=== PATIENT | female | born 1950 | race Caucasian/White ===

== ENCOUNTER 2023-06-04 10:27 | Outpatient (OUT) | payer OTHER, SELFPAY ==
--- NOTE | 2023-06-04 10:28 | VEIN_ITS ---
Patient Name: CHAPO HO MR#: [id number] : 1950 Exam Date: 06/04/2023 Ordering Doctor: TATI VIDES M.D. RADIOLOGY REPORT PROCEDURE: VC EXT VENOUS REFLUX YARIEL LMTD COMPARISON: None. INDICATIONS: I83.813 Bilateral painful varicose veins TECHNIQUE: Duplex imaging of the lower extremity to assess the deep and superficial venous system for the presence of deep or superficial venous incompetence and to document the location and severity of disease. The study includes evaluation of the great saphenous vein (GSV), anterior accessory saphenous vein (AASV) and small saphenous vein (SSV). Patient scanned in reverse Trendelenburg and standing. FINDINGS: RIGHT LOWER EXTREMITY: Saphenofemoral Junction Reflux: Yes 7.1mm 0.8 sec GSV: Diam (mm) Reflux/ Time (sec) Proximal Thigh N/A Mid Thigh N/A Distal Thigh N/A Prox Calf N/A Mid Calf N/A Saphenopopliteal Junction Reflux: 4.5mm Yes 1.5 SSV: Proximal Calf 5.3 Yes 2.1 Mid Calf 3.6 Yes 0.6 AASV: Proximal Thigh 4.8 Yes 3.0 Mid Thigh 5.2 Yes 1.7 Distal Thigh Thrombi: No acute or chronic thrombus visualized Compressibility: Normal Flow: Normal Preforator: Dist/med calf 4.1mm with 1.7s reflux. Tech Note: GSV was previously stripped. Incompetent AASV. Patent varicose vein dist/med calf 5.4mm with 1.3s reflux. Patent varicose vein mid/med calf 3.5mm with 0.7s reflux. Patent varicose vein 4.0mm off AASV with 1.1s reflux. Patent varicose vein medial knee of AASV 5.9mm with 2.2s reflux. LEFT LOWER EXTREMITY: Saphenofemoral Junction Reflux: Yes 5.7 mm 1.9 sec GSV: Diam (mm) Reflux/Time (sec) Proximal Thigh 6.7 Yes 1.5 Mid Thigh 5.5 Yes 1.4 Distal Thigh 6.0 Yes 0.6 Prox Calf 4.7 No Mid Calf 3.6 Yes 1.7 Saphenopopliteal Junction Relux: 3.4 mm Yes 0.9 SSV: Proximal Calf 3.1 Yes 1.7 Mid Calf 3.3 No AASV: Proximal Thigh 4.5 Yes 1.6 Mid Thigh 4.9 Yes 1.2 Distal Thigh Yes Thrombi: No acute or chronic thrombus visualized Compressibility: Normal Flow: Normal Clinical Program Coordinator: Dist/med calf 3.5mm with 1.4s reflux. Tech Note: Incompetent GSV. Patent varicose vein medial knee 3.8mm with 1.5s reflux. Patent varicose vein dist/med thigh 4.1mm with 1.8s reflux. CONCLUSION: 1. Moderate right and mild left small saphenous vein venous insufficiency with dilatation on the right but no dilatation on left 2. Moderate right and mild left anterior accessory saphenous vein venous insufficiency with mild dilatation 3. Mild venous insufficiency with dilatation and saphenofemoral junction reflux in the left great saphenous vein 4. Bilateral incompetent varicose veins Dictated by: Hernandez Iverson MD on 06/04/2023 at 12:11 Approved by: Hernandez Iverson MD on 06/04/2023 at 12:12
== END 2023-06-04 10:28 | disposition home or self-care (01) ==
LOC: VC 10:27
PROVIDERS: PCP Nurse Practitioner; Visit Provider Student in an Organized Health Care Education/Training Program
DX: I83.013 Varicose veins of right lower extremity with ulcer of ankle (principal); L97.319 Non-pressure chronic ulcer of right ankle with unspecified severity; I83.813 Varicose veins of bilateral lower extremities with pain
CPT/HCPCS: 93970

== ENCOUNTER 2024-05-22 12:47 | Outpatient (OUT) | payer MEDICARE, SELFPAY ==
--- NOTE | 2024-05-22 13:00 | CA_ITS ---
Patient Name: CHAPO HO MR#: [id number] : 1950 Exam Date: 05/22/2024 Ordering Doctor: HAIDER HONG ECHOCARDIOGRAM REPORT PROCEDURE: CA ECHO DOPPLER COMPLETE INDICATIONS: Diastolic heart failure, hypertension COMPARISON: None. DESCRIPTION: COMPLETE ECHOCARDIOGRAM Real-time transthoracic echocardiography with 2D, M-mode, spectral and color flow Doppler performed. QUALITY: Technical quality was adequate. LEFT VENTRICLE: Normal chamber size. Normal left ventricular wall thickness. Normal systolic function. LV EF: Normal left ventricular ejection fraction, (55%). DIASTOLIC: ATRIAL SEPTUM: Visually appears intact. LEFT ATRIUM: Moderate dilatation. RIGHT ATRIUM: Mild dilatation. RIGHT VENTRICLE: Normal chamber size. Normal right ventricular systolic function. TRICUSPID VALVE: Normal mobility and thickness. No stenosis with trivial regurgitation. Doppler studies reveal moderately (45-60) elevated right sided pressures. RVSP 51 mmHg MITRAL VALVE: Normal mobility and thickness. No evidence of mitral valve stenosis. There is no mitral annular calcification. No mitral regurgitation. AORTIC VALVE: Normal trileaflet appearance. No visible sclerosis. Normal leaflet mobility. No evidence of aortic valve stenosis. No aortic regurgitation. AORTIC ROOT: Normal diameter and appearance. Ascending aorta is normal in size. PULMONIC VALVE: Normal thickness and mobility. No stenosis. No regurgitation. PERICARDIUM: No evidence of pericardial effusion. IVC: IVC is dilated (2.4 cm), does not fully collapse. PLEURA: CONCLUSION: 1. Normal left ventricular size and systolic function. LVEF is 55%. 2. Normal right ventricular size and systolic function. 3. Mild to moderate biatrial dilatation. 4. No significant valvular dysfunction. 5. Moderately elevated right-sided pressures. RVSP is 51 mmHg. Adult Echocardiography Procedure Report Left Ventricle LVEDD (3.7 - 5.6 cm): 4.54 cm LVESD (2.2 - 4.0 cm): 3.04 cm LVIVS thickness (0.6 - 1.2 cm): 1.09 cm LVPW thickness (0.5 - 1.0 cm): 1.02 cm e': 0.09 m/s E - e': 11.28 LVOT Max Gradient: 3.10 mm[Hg] LVOT Area (cm2): 0.88 m/s Peak Velocity (LVOT): 0.88 m/s Mean Velocity (LVOT): 0.52 m/s LVOT Diameter 2.21 cm Left Atrium LA Volume Index (2D A2C): 30.77 ml/m2 Left Atrium Systolic Dimension: 4.66 cm Mitral Valve MV E to A Ratio: 3.77 Mitral Valve A-Wave Peak Velocity: 0.26 m/s Mitral Valve E-Wave Peak Velocity: 0.99 m/s Right Ventricle Aorta AO Root Diam: 3.00 cm Ascending Ao Diam: 2.70 cm Aortic Valve AoV Area (Peak Philippe): 3.22 cm2, 3.22 cm2 AoV Area (VTI): 3.04 cm2, 3.04 cm2 Peak Velocity(Antegrade Flow): 1.05 m/s Peak Gradient(Antegrade Flow): 4.42 mm[Hg] Mean Velocity(Antegrade Flow): 0.71 m/s Mean Gradient(Antegrade Flow): 2.31 mm[Hg] Velocity Time Integral: 24.58 cm Tricuspid Valve Peak Velocity (Regurgitant Flow): 2.98 m/s Pulmonic Valve Mean Gradient: 1.72 mm[Hg] Mean Velocity: 0.60 m/s Peak Velocity: 0.98 m/s, 0.96 m/s Peak Gradient: 3.70 mm[Hg], 3.81 mm[Hg] Right Atrium Right Atrium Systolic Pressure: 65.43 ml, 65.43 ml Dictated by: Ming Mane M.D. on 05/22/2024 at 16:57 Approved by: Ming Mane M.D. on 05/22/2024 at 17:02
[2024-05-22] MEDS: HEPARIN SODIUM (PORCINE) PF LOCK FLUSH 500 UNIT/5 ML SYRINGE IV (13:30)
[2024-05-22 14:15] LABS: Anion Gap 13.3; BUN Creatinine Ratio 18.7; Calcium 8.9 mg/dL (8.5-10.1); Carbon Dioxide 21.7 mmol/L (21.0-32.0); Chloride 108 mmol/L (98-107); Estimated GFR (African America 20 (>=60 mL/min/1.73m^2); Estimated GFR (Non-African Ame 16 (>=60 mL/min/1.73m^2); Glucose 96 mg/dL (74-106); Sodium 138 mmol/L (136-145)
== END 2024-05-22 12:48 | disposition home or self-care (01) ==
LOC: CARD 12:47
PROVIDERS: PCP Nurse Practitioner
DX: I50.32 Chronic diastolic (congestive) heart failure (principal); I48.11 Longstanding persistent atrial fibrillation; I11.0 Hypertensive heart disease with heart failure
CPT/HCPCS: 36415; 36591; 80048; 93306; J1642

== ENCOUNTER 2024-05-29 11:51 | Outpatient (OUT) | payer MEDICARE, SELFPAY ==
[2024-05-29 13:00] LABS: Alanine Aminotransferase 22 U/L (14-59); Albumin Globulin Ratio 1.1; Albumin Level 3.8 g/dL (3.4-5.0); Alkaline Phosphatase 63 U/L (46-116); Anion Gap 15.7; Aspartate Amino Transferase 19 U/L (15-37); BUN Creatinine Ratio 20.6; Bilirubin Total 0.6 mg/dL (0.2-1.0); Calcium 9.4 mg/dL (8.5-10.1); Carbon Dioxide 23.1 mmol/L (21.0-32.0); Chloride 105 mmol/L (98-107); Estimated GFR (African America 23 (>=60 mL/min/1.73m^2); Estimated GFR (Non-African Ame 19 (>=60 mL/min/1.73m^2); Globulin 3.5 g/dL; Glucose 117 mg/dL (74-106); Potassium 4.8 mmol/L (3.5-5.1); Sodium 139 mmol/L (136-145); Total Protein 7.3 g/dL (6.4-8.2)
== END 2024-05-29 11:52 | disposition home or self-care (01) ==
LOC: LAB 11:52
PROVIDERS: PCP Nurse Practitioner
DX: I48.11 Longstanding persistent atrial fibrillation (principal); I50.32 Chronic diastolic (congestive) heart failure
CPT/HCPCS: 80053; 80162; 83880

== ENCOUNTER 2024-10-12 12:43 | Outpatient (OUT) | payer MEDICARE, SELFPAY ==
--- NOTE | 2024-10-12 13:00 | CA_ITS ---
Patient Name: CHAPO HO MR#: [id number] : 1950 Exam Date: 10/12/2024 Ordering Doctor: HAIDER HONG ECHOCARDIOGRAM REPORT PROCEDURE: CA ECHO DOPPLER COMPLETE INDICATIONS: Diastolic heart failure, atrial fibrillation, hypertension, diabetes COMPARISON: None. DESCRIPTION: COMPLETE ECHOCARDIOGRAM Real-time transthoracic echocardiography with 2D, M-mode, spectral and color flow Doppler performed. QUALITY: Technical quality was good. LEFT VENTRICLE: Normal chamber size. Borderline left ventricular hypertrophy. LV EF: Global left ventricular systolic function is normal; visually estimated ejection fraction is 55 to 60%. Unable to assess regional wall motion abnormality; consider contrast study for better delineation of endocardial borders. DIASTOLIC: Unable to assess diastolic function. ATRIAL SEPTUM: Visually appears intact. LEFT ATRIUM: Normal chamber size. RIGHT ATRIUM: Normal chamber size. RIGHT VENTRICLE: Normal chamber size. Normal systolic function. TRICUSPID VALVE: Normal mobility and thickness. Trivial regurgitation. Doppler studies reveal mildly (35-45) elevated right-sided pressures. RVSP 38 mmHg MITRAL VALVE: Normal mobility and thickness. No evidence of mitral valve stenosis. There is no mitral annular calcification. Mild mitral regurgitation. AORTIC VALVE: Normal trileaflet appearance. No visible sclerosis. Normal leaflet mobility. No evidence of aortic valve stenosis. No aortic regurgitation. AORTIC ROOT: Normal diameter and appearance. PULMONIC VALVE: Normal thickness and mobility. No stenosis. No regurgitation. PERICARDIUM: No evidence of pericardial effusion. IVC: Collapses with inspiration. IVC is dilated (2.4 cm) CONCLUSION: 1. Global left ventricular systolic function is normal; visually estimated ejection fraction is 55 to 60% 2. Normal right ventricular size and systolic function 3. Borderline left ventricular hypertrophy 4. The left atrium is normal in size 5. Mild mitral regurgitation Adult Echocardiography Procedure Report Left Ventricle LVEDD (3.7 - 5.6 cm): 4.51 cm LVESD (2.2 - 4.0 cm): 2.86 cm LVIVS thickness (0.6 - 1.2 cm): 0.95 cm LVPW thickness (0.5 - 1.0 cm): 1.12 cm LVOT Max Gradient: 1.96 mm[Hg], 2.18 mm[Hg], 2.54 mm[Hg], 1.50 mm[Hg] LVOT Area (cm2): 0.71 m/s Peak Velocity (LVOT): 0.70 m/s, 0.74 m/s, 0.80 m/s, 0.61 m/s LVOT Diameter 2.13 cm Left Atrium LA Volume Index (2D A2C): 31.55 ml/m2 Left Atrium Systolic Dimension: 4.73 cm Mitral Valve Mitral Valve E-Wave Peak Velocity: 0.98 m/s Right Ventricle Aorta AO Root Diam: 2.96 cm Aortic Valve AoV Area (Peak Philippe): 2.61 cm2, 2.47 cm2, 2.82 cm2 Peak Velocity(Antegrade Flow): 1.01 m/s, 0.93 m/s Peak Gradient(Antegrade Flow): 4.07 mm[Hg], 3.48 mm[Hg] Tricuspid Valve Peak Velocity (Regurgitant Flow): 2.74 m/s, 2.44 m/s Pulmonic Valve Peak Velocity: 0.89 m/s Peak Gradient: 3.69 mm[Hg], 2.35 mm[Hg], 3.58 mm[Hg] Right Atrium Right Atrium Systolic Pressure: 38.87 ml, 38.87 ml Dictated by: Stella Mclaughlin M.D. on 10/13/2024 at 16:02 Approved by: Stella Mclaughlin M.D. on 10/13/2024 at 16:06
== END 2024-10-12 12:44 | disposition home or self-care (01) ==
LOC: CARD 12:45
PROVIDERS: PCP Nurse Practitioner
DX: I50.32 Chronic diastolic (congestive) heart failure (principal)
CPT/HCPCS: 93306